=== PATIENT | male | born 1955 | race Caucasian/White ===

== ENCOUNTER 2023-07-20 08:54 | Emergency (ER) | payer MEDICARE, SELFPAY ==
[2023-07-20 08:55] VITALS: BP 169/64; PULSE 56; RESP 16; TEMP 36.7; O2SAT 99; BMI 32.8
--- NOTE | 2023-07-20 09:16 | ECG_ITS ---
APPROVED REPORT Exam: Resting ECG HR:51 bpm ECG Measurements Heart Rate 51 AXES NV 168 P 39 QRSd 93 QRS -24 QT 438 T 37 QTc 416 Conclusion SINUS BRADYCARDIA BORDERLINE LEFT AXIS DEVIATION [QRS AXIS < -20] BORDERLINE ECG UNCONFIRMED REPORT Electronically signed by : Blue Pereira MD 07/22/2023 08:02:05
[2023-07-20 09:31] VITALS: BP 148/93; PULSE 50; O2SAT 96
--- NOTE | 2023-07-20 09:34 | HMH.EDGENADL ---
Discharge Plan Disposition Patient Disposition: Home, Self-Care Condition: Good Prescriptions Prescriptions: New lisinopril 10 mg tablet 10 mg PO DAILY Qty: 30 0RF No Action prednisone 50 MG tablet 50 mg PO DAILY 5 Days Qty: 5 0RF diclofenac sodium 75 MG tablet,delayed release (DR/EC) 75 mg PO BID 10 Days Qty: 20 0RF Referrals Follow up/Referrals: Mathew Alcala MD [Staff Physician] - See instructions Provider,MD Eusebia [Primary Care Provider] - See instructions Activity Restrictions/Add. Instructions Additional Instructions/Restrictions: You were evaluated in the emergency department today. Please pick pulling machine tender your prescription to the pharmacy and take daily as prescribed. Follow-up closely with your primary care provider for reassessment. Also recommend follow-up with cardiology given your intermittent chest pain. Return to the emergency department for any new or worsening symptoms. Keep a log of your blood pressures at home and present them to your doctor. Clinical Impressions Clinical Impression: Hypertension Qualifiers: Hypertension type: unspecified Qualified Code(s): I10 - Essential (primary) hypertension Instructions Patient Instructions: DI for High Blood Pressure Discharge ED Provider: Bernarda Corley General Adult HPI General Chief complaint: Recheck/Abnormal Lab/Rx Stated complaint: high bp Time Seen by Provider: 07/20/23 09:15 Mode of Arrival: Ambulatory Source of Information: Patient Limitations: No Limitations Description of Symptoms (Recalled from ER Triage Doc. by RN): Patient reports that his blood pressure has been elevated lately. states that the patient has had nose bleeds lately and headaches off and on. History of Present Illness HPI narrative: This patient is a 67-year-old male who denies significant past medical history presenting to the emergency department for evaluation with concern for high blood pressure readings at home. He notes that his and been taking his blood pressure because he has been complaining of headaches off and on and has had intermittent nosebleeds. He also states that he is having gas pain whenever he goes to sleep at night on the left side of his chest that seems to be associated with what he eats for dinner. His is concerned that its not gas pain but its true chest pain. He denies experiencing symptoms like this last night and denies any current symptoms at this time. He attributes the nosebleeds and headaches to being out in the [place] working on hay lately. He states it has been very congested and has had a lot of sinus pressure. His blood pressure at home for the last week has consistently been in the 160s to 170s systolic, so his brought him in for evaluation. She reports that they have not been able to get in with his primary care provider, as they had an insurance issue. Currently states that he is feeling well without any concerns or complaints at this time. Related Data Previous Rx's Medication Instructions Recorded diclofenac sodium 75 mg 75 mg PO BID 10 days #20 tabs 09/03/19 tablet,delayed release prednisone 50 mg tablet 50 mg PO DAILY 5 days #5 tabs 09/03/19 lisinopril 10 mg tablet 10 mg PO DAILY #30 tabs 07/20/23 Allergies Allergy/AdvReac Type Severity Reaction Status Date / Time No Known Allergies Allergy Verified 09/03/19 08:[address] [facility] Disclaimer: The information contained in this section may have been updated after the patient was seen, as this information can be updated by other users. Social History Smoking Status: Never smoker alcohol intake: never substance use type: other current occupational status: employed Travel in the last 8 weeks: None household members: spouse ROS Obtained: Yes All systems reviewed & no additional complaints except as documented Physical Exam General General appearance: alert and in no
[2023-07-20 09:43] LABS: Chloride 103 mmol/L (98-107); Sodium 139 mmol/L (136-145)
[2023-07-20 09:46] LABS: Blood Urea Nitrogen 16 mg/dl (9-20); Carbon Dioxide 27 mmol/L (22.0-30.0); Creatinine Clearance Estimated 99 mL/min (50-200); Estimated Glomerular Filt Rate 85 ml/min (>60); GFR (African American) 102 ML/MIN (>60)
[2023-07-20 09:47] LABS: Calcium 8.8 mg/dl (8.4-10.2); Glucose 118 mg/dl (74-100)
[2023-07-20 10:01] VITALS: BP 143/92; PULSE 53; O2SAT 96
--- NOTE | 2023-07-20 10:03 | PC.NURSE ---
Rounded on pt nothing needed at this time, at bs
[2023-07-20 10:25] VITALS: BP 143/92; PULSE 53; RESP 18; TEMP 36.7; O2SAT 97
== END 2023-07-20 10:28 | disposition home or self-care (01) ==
PROVIDERS: Emergency Provider Emergency Medicine
DX: I10 Essential (primary) hypertension (principal); R00.1 Bradycardia, unspecified; R07.9 Chest pain, unspecified; R04.0 Epistaxis; R09.81 Nasal congestion
CPT/HCPCS: 80048; 93005; 99284

== ENCOUNTER → 2023-08-11 06:00 | Outpatient (CLI) | payer MEDICARE, SELFPAY ==
--- NOTE | 2023-08-11 06:10 | NM_ITS ---
APPROVED REPORT Exam: Nuclear Stress Test Indication: chest pain..high bp..tobacco use..family hx Patient Location: Outpatient Stress Tech: Frances Blank DE Tech:Dianne Keita ARRT RT(R)(N) Ht: 5 ft 5 in Wt: 212 lbs HR: 67 bpm BP: 145/56 mmHg BSA: 2.03 m2 Rhythm: NSR TID: 1.06 BMI: 35.2 History: chest pain..high bp..tobacco use..family hx Procedure: Patient exercised on Perez protocol 8:45 minutes and sec, resting heart rate 67 bpm, resting blood pressure 145/56 mmHg, with exercise maximum heart rate achived was 155 bpm which is 100 % of the maximum predicted heart rate and blood pressure was 186/106 mmHg. Test was stopped due to fatigue and v-tach. Patient denied any complaint of chest pain. Patient has Average exercise capacity, achieved 10.1 METs of workload on treadmill, the blood pressure response to exercise was Normal. Cardiac Stress and Resting SPECT Images: Cardiac Stress and Resting SPECT images were obtained using technetium 99m Myoview 31.4 mCi stress and 10.54 mCi at rest. Resting and stress imaging in supine and prone positions demonstrate a medium sized, moderate, reversible perfusion defect in the basal to mid inferior and inferolateral LV wall. There is also a medium sized, moderate, partially reversible perfusion defect in the LV apex. Gated imaging demonstrates low normal global LV systolic function. There is mild hypokinesis of the basal inferior LV wall. LVEF is calculated at 50%. Conclusion: Medium sized, moderate, reversible perfusion defect in the basal to mid inferior and inferolateral LV wall. There is also a medium sized, moderate, partially reversible perfusion defect in the LV apex. Findings are suggestive of reversible ischemia. Gated imaging demonstrates low normal global LV systolic function. There is mild hypokinesis of the basal inferior LV wall. LVEF is calculated at 50%. Of note, the patient had frequent ectopy including PVCs, ventricular couplets, and runs of NSVT, at peak exercise and during recovery of Perez protocol. Electronically signed by : Mariana Agrawal MD 08/16/2023 15:16:09
--- NOTE | 2023-08-11 08:23 | CA_ITS ---
APPROVED REPORT EXAM: Comprehensive 2D, Doppler, and color-flow Echocardiogram Stonecutter Assistant: Sol Mcgee RT(R) Ht: 5 ft 10 in Wt: 213lbs BSA: 2.14 BP: 128/88 mmHg Indications: CP, bradycardia, HTN 2D Dimensions LVOT 2.01 cm (M/F) 1.5-2.5 LA Volume 40.10 mL LA Volume Index 18.65 mL/m2 (M/F) 16-34 M-Mode Dimensions RVDd 3.14 cm (0.9-2.6) LA Diam 3.62 cm (1.9-4.0) LVDd 5.83 cm (3.5-5.7) Ao Diam 3.09 cm (2.0-3.7) LVDs 4.39 cm (3.5-5.7) IVSd 0.87 cm (0.6-1.1) PWd 0.72 cm (0.6-1.1) EF (Teich) 48.20% FS 24.70% EDV (Teich) 168.50 mL ESV (Teich) 87.20 mL LV Diastology E Decel Time 150.00 (160-240 msec) E/A Ratio 1.7 MED E' 9.20 (< 7 cm/sec) E'/MED E' Ratio 7.70 (>14) LAT E' 12.60 (<10 cm/sec) E/LAT E' Ratio 5.62 (>14) Mitral Valve MV E Max Keon. 71.00 (40-130 cm/s) MV A Velocity 43.00 (40-130 cm/s) E/A Ratio 1.64 MV Decel. Time 150.00 (160-240 ms) MV PHT 44.00 ms Left Ventricle The left ventricle is normal size. The left ventricular systolic function is normal. The left ventricular ejection fraction is within the normal range. There is increased LV wall thickness. There is normal LV segmental wall motion. The left ventricular diastolic function is normal. LVEF is 55%. Right Ventricle Right ventricle is mildly dilated. There is mild reduction in RV systolic function. Atria The left atrium size is normal. The right atrium size is normal. There is no Doppler evidence of interatrial shunt. Aortic Valve The aortic valve is mildly thickened. There is no aortic valvular stenosis. Mild aortic regurgitation. Mitral Valve The mitral valve is normal in structure. No evidence of mitral valve stenosis. There is no mitral valve regurgitation noted. Tricuspid Valve The tricuspid valve leaflets are thin and pliable. Trace tricuspid regurgitation. There is insufficient TR jet to estimate RVSP. Pulmonic Valve The pulmonary valve is normal in structure. Trace pulmonic regurgitation. Great Vessels The aortic root is normal in size. The ascending aorta is normal in size. IVC is normal in size and collapses >50% with inspiration. Pericardium There is no pericardial effusion. Other Information Study Quality: Fair Conclusion Normal LV systolic function. Mildly dilated RV with mild reduction in RV systolic function. Mild AI. Electronically signed by : Mariana Agrawal MD 08/13/2023 21:13:20
--- NOTE | 2023-08-11 09:08 | CA_ITS ---
APPROVED REPORT Exam: Exercise Treadmill Technologist: Frances Lozdaa, Ht: 5 ft 7 in Wt: 213 lbs BSA: 2.08 m2 HR: 67 bpm BP: 145/56 mmHg Rhythm: Sinus bradycardia Medical History Medications: Lisinopril,,,,, Diclofenac Sodium,,,,, Stress Test Details Test: Perez HR Resting HR: 53 bpm Max Heart Rate (APMHR): 155 bpm Max HR Achieved: 168 bpm Target HR (85% APMHR): 132 bpm % of APMHR: 108 Recovery HR: 67 bpm HR response to stress: Normal HR response to stress BP Resting BP: 151.0/101.0 mmHg Max BP: 186.0/106.0 mmHg Recovery BP: 142.0/88.0 mmHg BP response to stress: Normal blood pressure response to stress. ECG Resting ECG: Sinus lars, PVC'S, PACs, rightward axis, sinus pause of 1.7 sec. Stress ECG: < 0.[address] depression Arrhythmia: PACs, PVCs, couplets, runs of NSVT Recovery ECG: Return to baseline within 1 minute of recovery. Clinical Exercise duration: 08:45 min Highest Stage Achieved: III Exercise capacity: 10.1 METs Overall Exercise Capacity for Age: Average Stress ECG Conclusion The patient was able to exercise for a total of 8:45 on Perez Protocol. He achieved a total of 10.1 METS. He has average exercise capacity compared to age and sex matched peers. He has normal HR and BP response to exercise. Max HR: 155 % of PM: 100% Max BP: 186/106 METs: 10.1 Test stopped due to: NSVT, fatigue Symptoms: No CP. Arrhythmias/Ectopy: Sinus pauses of -1.6 secs. Frequent PACs. Occ PVC, occ vent couplet & triplet. One 6 beat run of NSVT. ST-T Changes: Within normal ST response to exercise. Conclusion: Average exercise capacity. Frequent atrial ectopy, occ vent. ectopy with couplets, triplets & one 6 beat run of VT. Also occ sinus pause up to 1.6-1.[address] changes. Myoview images reported separately. Test Summary REST . . . . . . . Sitting REST . . . . . . . Standing REST 05:18 0.0 0.0 53 . 151/101 . . Stage 1 01:00 10.0 1.7 94 . . . . Stage 1 02:00 10.0 1.7 94 . . . . Stage 1 03:00 10.0 1.7 95 . . . . Stage 2 01:00 12.0 2.5 108 . . . . Stage 2 02:00 12.0 2.5 117 . 186/106 . . Stage 2 03:00 12.0 2.5 122 . 186/106 . . Stage 3 01:00 14.0 3.4 146 . . . . Stage 3 02:00 14.0 3.4 149 . . . . Stage 3 02:45 14.0 3.4 155 . . . Stop exercise at 08:45 RECOVERY 01:00 0.0 0.0 119 . . . . RECOVERY 02:00 0.0 0.0 109 . . . . RECOVERY 03:00 0.0 0.0 84 . 160/101 . . RECOVERY 04:00 0.0 0.0 64 . 148/ 93 . . RECOVERY 05:00 0.0 0.0 61 . 148/ 93 . . RECOVERY 06:00 0.0 0.0 64 . 142/ 88 . . RECOVERY 07:00 0.0 0.0 57 . 142/ 88 . . RECOVERY 07:22 0.0 0.0 69 . 142/ 88 . . Electronically signed by : Mariana Agrawal MD 08/16/2023 15:13:16
== END ==
PROVIDERS: PCP Internal Medicine; Visit Provider Internal Medicine
DX: I10 Essential (primary) hypertension (principal); R00.1 Bradycardia, unspecified; R07.9 Chest pain, unspecified; Z98.890 Other specified postprocedural states
CPT/HCPCS: 78452; 93017; 93306; A9502

== ENCOUNTER 2023-08-11 11:06 | Day surgery (SDC) | payer MEDICARE, SELFPAY ==
[2023-08-11] VITALS (15 sets, daily range): BP systolic 99–158; BP diastolic 65–91; PULSE 50–65; RESP 16–20; O2SAT 92–97; BMI 29.1
--- NOTE | 2023-08-11 11:21 | IR_ITS ---
APPROVED REPORT Patient Location: Outpatient Save All Operator: EDELMIRA Anderson RT (R) PROCEDURES Left heart catheterization Left ventriculogram Selective coronary angiogram INDICATION Abnormal stress test, Nonsustained ventricular tachycardia, Ventricular arrhythmias Informed consent was obtained prior to the procedure. COMPLICATIONS None Estimated Blood Loss: Less than 10 ml TECHNIQUE One percent lidocaine used to anesthetize the right anterior aspect of the wrist. The right radial artery was accessed via the Seldinger technique. A 6 Maori sheath was placed in the right radial artery. 2.5 mg of Verapamil, 800 mcg of nitroglycerin, 1mg Lidocaine and 5000 U Heparin were given through the arterial sheath. The papa catheter was also used to perform left heart catheterization, left ventriculogram and selective coronary angiogram. At the end of the procedure the sheath was removed good hemostasis was achieved using Traclet band, patient was transferred to the postop holding area in stable condition. ANGIOGRAPHIC RESULTS The left main artery Normal The left anterior descending artery Has proximal and mid vessel mild 10% luminal irregularities. There was a moderate-sized first diagonal artery which is approximately 2 mm in diameter and has an ostial concentric 80 to 90% stenosis. Likewise the second diagonal artery which is small to moderate in 1.75 mm in diameter has a proximal 60 to 70% stenosis. SLIME I-II flow was present down the entire LAD system The circumflex artery Is a large codominant system and has SLIME II flow with no angiographic evidence of plaque or stenosis The right coronary artery Is codominant and has proximal 10 to 20% stenoses with distal 20 to 30% stenoses The KAYE ventriculogram reveals Normal 65% The left ventricular end-diastolic pressure 10 mmHg IMPRESSION Slow flow down the LAD system consistent with endothelial dysfunction. Severe stenoses in a moderate-sized ostial first diagonal artery as well as a small to moderate-sized second diagonal artery. Neither of these lesions are producing the slow flow down the LAD which represents diffuse endothelial dysfunction Normal ejection fraction Normal left ventricular end-diastolic pressure PLAN 1. Medical management for endothelial dysfunction 2. Medical management for coronary artery disease 3. LDL less than 55 to be achieved with high intensity statin 4. Avoidance of tobacco products 5. Maximize antianginal medications with particular attention to long-acting nitrates and Ranexa 6. Cardiac rehabilitation 7. Low-dose beta-blockers may benefit the ventricular arrhythmia Electronically signed by : Mathew Alcala MD 08/11/2023 16:20:16
[2023-08-11 11:40] LABS: Basophils % 0.5 % (0.1-2.0); Eosinophils % 0.8 % (0.1-12.0); Hematocrit 49.1 % (42.0-52.0); Hemoglobin 16.5 g/dL (14.1-18.0); Lymphocytes # 2.2 K/mm3 (0.7-4.5); Lymphocytes % 42.4 % (10-50); Mean Corpuscular HGB Conc 33.6 g/dL (31.8-35.4); Mean Corpuscular Hemoglobin 32.2 pg (27.0-31.2); Mean Corpuscular Volume 95.7 fl (80-94); Mean Platelet Volume 7.8 fl (7.4-10.4); Monocytes # 0.4 K/mm3 (0.1-1.0); Monocytes % 7.2 % (1.7-9.3); Neutrophils # 2.6 K/mm3 (1.8-7.8); Neutrophils % 49.1 % (37.0-80.0); Platelet Count 192 K/mm3 (142-424); Red Blood Count 5.13 M/mm3 (4.60-6.20); Red Cell Distribution Width 13.2 % (11.5-17.5); White Blood Count 5.2 K/mm3 (4.8-10.8)
[2023-08-11 11:47] LABS: Chloride 103 mmol/L (98-107); Potassium 4.4 mmoL/L (3.5-5.1); Sodium 138 mmol/L (136-145)
[2023-08-11 11:50] LABS: Anion Gap 11.4 mEq/L (5-15); Blood Urea Nitrogen 16 mg/dl (9-20); Calcium 8.9 mg/dl (8.4-10.2); Carbon Dioxide 28 mmol/L (22.0-30.0); Creatinine Clearance Estimated 99 mL/min (50-200); Estimated Glomerular Filt Rate 97 ml/min (>60); GFR (African American) 117 ML/MIN (>60); Glucose 121 mg/dl (74-100)
[2023-08-11 16:59] LABS: CATHL Activated Clotting Time 191 SEC (74-125)
== END 2023-08-11 19:13 | disposition home or self-care (01) ==
PROVIDERS: PCP Family Medicine; Visit Provider Internal Medicine
DX: I10 Essential (primary) hypertension (principal); I47.20 Ventricular tachycardia, unspecified; R00.1 Bradycardia, unspecified; R07.9 Chest pain, unspecified; I77.1 Stricture of artery; I25.118 Atherosclerotic heart disease of native coronary artery with other forms of angina pectoris; Z82.49 Family history of ischemic heart disease and other diseases of the circulatory system
CPT/HCPCS: 78452; 80048; 85025; 85347; 93017; 93306; 93458; 99152; A9502; C1725; C1769; J1644; Q9967

== ENCOUNTER → 2023-08-22 10:48 | Outpatient (CLI) | payer MEDICARE, SELFPAY ==
[2023-08-22 11:55] LABS: Basophils % 0.5 % (0.1-2.0); Hematocrit 47.1 % (42.0-52.0); Lymphocytes # 1.8 K/mm3 (0.7-4.5); Lymphocytes % 41.5 % (10-50); Mean Corpuscular Hemoglobin 32.2 pg (27.0-31.2); Mean Corpuscular Volume 94.9 fl (80-94); Monocytes # 0.3 K/mm3 (0.1-1.0); Monocytes % 6.8 % (1.7-9.3); Neutrophils # 2.2 K/mm3 (1.8-7.8); Neutrophils % 50.2 % (37.0-80.0); Platelet Count 200 K/mm3 (142-424); Red Blood Count 4.96 M/mm3 (4.60-6.20); Red Cell Distribution Width 12.9 % (11.5-17.5); White Blood Count 4.4 K/mm3 (4.8-10.8)
[2023-08-22 13:22] LABS: Alanine Aminotransferase 51 U/L (12-78); Albumin Level 4.3 g/dl (3.5-5.0); Alkaline Phosphatase 61 U/L (38-126); Anion Gap 12.6 mEq/L (5-15); Aspartate Amino Transferase 49 U/L (17-59); Bilirubin,Direct 0.1 mg/dl (0.0-0.4); Bilirubin,Indirect 0.4 mg/dL (0.0-0.9); Bilirubin,Total 0.5 mg/dl (0.2-1.3); Bilirubin,Unconjugated 0.4 mg/dL (0.0-1.1); Blood Urea Nitrogen 19 mg/dl (9-20); Calcium 9.3 mg/dl (8.4-10.2); Carbon Dioxide 29 mmol/L (22.0-30.0); Chloride 99 mmol/L (98-107); Chol/HDL Ratio 5.1 (1-3.5); Cholesterol 157 mg/dl (140-200); Estimated Glomerular Filt Rate 75 ml/min (>60); GFR (African American) 91 ML/MIN (>60); Glucose 93 mg/dl (74-100); HDL Cholesterol 31 mg/dl (40-60); Magnesium 1.6 mg/dl (1.6-2.3); Potassium 4.6 mmoL/L (3.5-5.1); Sodium 136 mmol/L (136-145); Triglycerides 118 mg/dl (30-150); VLDL Cholesterol 24 mg/dL (0-40)
[2023-08-22 13:34] LABS: Direct LDL Cholesterol 88.75 mg/dL (100-129)
[2023-08-22 13:53] LABS: Thyroid Stimulating Hormone 0.96 uIU/mL (0.465-4.68)
== END ==
LOC: LAB 10:49
PROVIDERS: PCP Family Medicine; Visit Provider Nurse Practitioner
DX: I10 Essential (primary) hypertension (principal); I25.10 Atherosclerotic heart disease of native coronary artery without angina pectoris; I47.20 Ventricular tachycardia, unspecified; R00.1 Bradycardia, unspecified; Z72.0 Tobacco use; M54.10 Radiculopathy, site unspecified
CPT/HCPCS: 36415; 80048; 80061; 80076; 83735; 84439; 84443; 85025; 93225

== ENCOUNTER → 2023-09-19 09:10 | Outpatient (CLI) | payer MEDICARE, SELFPAY | PROVIDERS: PCP Family Medicine; Visit Provider Physician Assistant | DX: I10 Essential (primary) hypertension (principal); I25.10 Atherosclerotic heart disease of native coronary artery without angina pectoris; I47.20 Ventricular tachycardia, unspecified; I48.91 Unspecified atrial fibrillation; R00.1 Bradycardia, unspecified; Z72.0 Tobacco use | CPT/HCPCS: 93270 ==

== ENCOUNTER 2024-10-01 09:24 | Outpatient (CLI) | payer MEDICARE, SELFPAY | END 2024-10-01 23:59 | disposition home or self-care (01) | LOC: RT 09:28 | PROVIDERS: PCP Family Medicine; Visit Provider Physician Assistant | DX: I47.20 Ventricular tachycardia, unspecified (principal); R00.1 Bradycardia, unspecified; I48.91 Unspecified atrial fibrillation | CPT/HCPCS: 93225; 93227 ==

== ENCOUNTER 2024-10-11 07:35 | Outpatient (CLI) | payer MEDICARE, SELFPAY ==
--- NOTE | 2024-10-11 07:43 | CA_ITS ---
APPROVED REPORT EXAM: Comprehensive 2D, Doppler, and color-flow Echocardiogram Vacuum Drier Operator: Sol Mcgee RT(R) Ht: 5 ft 11 in Wt: 223lbs BSA: 2.21 BP: 144/84 mmHg Indications: dyspnea, AFIB, HTN, palpitations, family history of HD, GERD. 2D Dimensions LA Volume 41.20 mL LA Volume Index 18.64 mL/m2 (M/F) 16-34 EF AP4 58.40 % GL Strain -17.0 % M-Mode Dimensions RVDd 2.74 cm (0.9-2.6) LA Diam 3.51 cm (1.9-4.0) LVDd 5.75 cm (3.5-5.7) LVDs 3.70 cm (3.5-5.7) IVSd 0.89 cm (0.6-1.1) PWd 0.84 cm (0.6-1.1) EF (Teich) 64.40% FS 35.70% EDV (Teich) 163.30 mL ESV (Teich) 58.10 mL LV Diastology E Decel Time 160 (160-240 msec) E/A Ratio 1.4 Mitral Valve MV E Max Keon. 74.0 (40-130 cm/s) MV A Velocity 52.0 (40-130 cm/s) E/A Ratio 1.41 MV PHT 47.0 ms Left Ventricle The left ventricle is normal size. The left ventricular systolic function is normal. The left ventricular ejection fraction is within the normal range. There is increased LV wall thickness. There is normal LV segmental wall motion. The left ventricular diastolic function is normal. LVEF is 55%. Right Ventricle The right ventricle is mildly dilated. The right ventricular systolic function is normal. Atria Left atrium is mildly dilated. Right atrium is mildly dilated. There is no Doppler evidence of interatrial shunt. Aortic Valve The aortic valve is mildly thickened. There is no aortic valvular stenosis. Mild aortic regurgitation. Mitral Valve The mitral valve is normal in structure. No evidence of mitral valve stenosis. There is no mitral valve regurgitation noted. Tricuspid Valve Tricuspid valve is grossly normal in structure and function. Trace tricuspid regurgitation. RVSP is normal. Pulmonic Valve The pulmonary valve is normal in structure. Trace pulmonic regurgitation. Great Vessels The aortic root is normal in size. IVC is normal in size and collapses >50% with inspiration. Pericardium There is no pericardial effusion. Other Information Study Quality: Fair Conclusion Normal biventricular systolic function. Mild RV dilation. Mild biatrial dilation. Mild AI. Electronically signed by : Mariana Agrawal MD 10/28/2024 10:17:19
== END 2024-10-11 23:59 | disposition home or self-care (01) ==
LOC: RT 07:37
PROVIDERS: Visit Provider Physician Assistant
DX: I51.7 Cardiomegaly (principal); I35.1 Nonrheumatic aortic (valve) insufficiency; R06.09 Other forms of dyspnea; I25.10 Atherosclerotic heart disease of native coronary artery without angina pectoris; I48.91 Unspecified atrial fibrillation; I47.20 Ventricular tachycardia, unspecified; R00.1 Bradycardia, unspecified
CPT/HCPCS: 93306

== ENCOUNTER 2024-11-01 07:43 | Outpatient (CLI) | payer MEDICARE, SELFPAY ==
[2024-11-01 14:09] LABS: PHA INR Fingerstick 1.1 (0.9-1.1)
== END 2024-11-01 14:14 ==
LOC: ACC 07:44
PROVIDERS: PCP Family Medicine; Visit Provider Physician Assistant
DX: Z79.01 Long term (current) use of anticoagulants (principal); I48.91 Unspecified atrial fibrillation
CPT/HCPCS: 85610; 99211; G0463

== ENCOUNTER 2024-11-05 09:06 | Outpatient (CLI) | payer MEDICARE, SELFPAY ==
[2024-11-05 09:56] LABS: Basophils % 0.4 % (0.1-2.0); Eosinophils % 0.8 % (0.1-12.0); Hematocrit 44.3 % (42.0-52.0); Hemoglobin 15.2 g/dL (14.1-18.0); Lymphocytes # 2.2 K/mm3 (0.7-4.5); Lymphocytes % 44.2 % (10-50); Mean Corpuscular HGB Conc 34.3 g/dL (31.8-35.4); Mean Corpuscular Hemoglobin 30.4 pg (27.0-31.2); Mean Corpuscular Volume 88.6 fl (80-94); Mean Platelet Volume 10.1 fl (7.4-10.4); Monocytes # 0.5 K/mm3 (0.1-1.0); Monocytes % 10.4 % (1.7-9.3); Neutrophils # 2.2 K/mm3 (1.8-7.8); Platelet Count 201 K/mm3 (142-424); Red Cell Distribution Width 12.6 % (11.5-17.5)
[2024-11-05 10:29] LABS: Alanine Aminotransferase 81 U/L (12-78); Albumin Level 4.5 g/dl (3.5-5.0); Alkaline Phosphatase 67 U/L (38-126); Anion Gap 9.6 mEq/L (5-15); Aspartate Amino Transferase 87 U/L (17-59); Bilirubin,Direct 0.2 mg/dl (0.0-0.4); Bilirubin,Indirect 0.1 mg/dL (0.0-0.9); Bilirubin,Total 0.3 mg/dl (0.2-1.3); Bilirubin,Unconjugated 0.1 mg/dL (0.0-1.1); Blood Urea Nitrogen 20 mg/dl (9-20); Calcium 9.3 mg/dl (8.4-10.2); Carbon Dioxide 29 mmol/L (22.0-30.0); Chloride 100 mmol/L (98-107); Chol/HDL Ratio 3.5 (1-3.5); Cholesterol 105 mg/dl (140-200); Estimated Glomerular Filt Rate 84 ml/min (>60); GFR (African American) 102 ML/MIN (>60); Glucose 103 mg/dl (74-100); HDL Cholesterol 30 mg/dl (40-60); Magnesium 1.8 mg/dl (1.6-2.3); Potassium 4.6 mmoL/L (3.5-5.1); Sodium 134 mmol/L (136-145); Total Protein,Serum 7.8 g/dl (6.3-8.2); Triglycerides 154 mg/dl (30-150); VLDL Cholesterol 31 mg/dL (0-40)
[2024-11-05 10:41] LABS: Direct LDL Cholesterol 45.77 mg/dL (100-129)
[2024-11-05 10:45] LABS: Free T4 (Free Thyroxine) 1.08 ng/dl (0.78-2.19)
[2024-11-05 13:33] LABS: Thyroid Stimulating Hormone 1.44 uIU/mL (0.465-4.68)
[2024-11-05 14:34] LABS: PHA INR Fingerstick 1.9 (0.9-1.1)
== END 2024-11-05 14:43 ==
LOC: LAB 09:07
PROVIDERS: PCP Family Medicine; Visit Provider Physician Assistant
DX: K21.9 Gastro-esophageal reflux disease without esophagitis (principal); I48.91 Unspecified atrial fibrillation; Z72.0 Tobacco use; I25.10 Atherosclerotic heart disease of native coronary artery without angina pectoris; I10 Essential (primary) hypertension; I35.1 Nonrheumatic aortic (valve) insufficiency
CPT/HCPCS: 36415; 80048; 80061; 80076; 83735; 84439; 84443; 85025; 85610; 99211; G0463

== ENCOUNTER 2024-11-11 07:39 | Outpatient (CLI) | payer MEDICARE, SELFPAY | END 2024-11-11 09:13 | LOC: ACC 07:39 | PROVIDERS: PCP Family Medicine; Visit Provider Physician Assistant | DX: Z79.01 Long term (current) use of anticoagulants (principal); I48.91 Unspecified atrial fibrillation | CPT/HCPCS: 85610; 99211; G0463 ==

== ENCOUNTER 2025-05-06 09:11 | Outpatient (CLI) | payer MEDICARE, SELFPAY ==
[2025-05-06 09:46] LABS: Hematocrit 44.6 % (42.0-52.0); Hemoglobin 15.4 g/dL (14.1-18.0); Immature Granulocytes % 0.2 %; Mean Corpuscular HGB Conc 34.5 g/dL (31.8-35.4); Mean Corpuscular Hemoglobin 30.8 pg (27.0-31.2); Mean Corpuscular Volume 89.2 fl (80-94); Nucleated Red Blood Cells % 0 %; Platelet Count 198 K/mm3 (142-424); Red Blood Count 5.00 M/mm3 (4.60-6.20); Red Cell Distribution Width-SD 42.2 fL; White Blood Count 5.1 K/mm3 (4.8-10.8)
[2025-05-06 10:17] LABS: Free T4 (Free Thyroxine) 1.07 ng/dl (0.78-2.19)
[2025-05-06 10:19] LABS: Alanine Aminotransferase 81 U/L (12-78); Albumin Level 4.4 g/dl (3.5-5.0); Alkaline Phosphatase 77 U/L (38-126); Anion Gap 9.6 mEq/L (5-15); Aspartate Amino Transferase 74 U/L (17-59); Bilirubin,Direct 0.5 mg/dl (0.0-0.4); Bilirubin,Indirect 0.2 mg/dL (0.0-0.9); Bilirubin,Total 0.7 mg/dl (0.2-1.3); Bilirubin,Unconjugated 0.3 mg/dL (0.0-1.1); Blood Urea Nitrogen 17 mg/dl (9-20); Calcium 9.7 mg/dl (8.4-10.2); Carbon Dioxide 30 mmol/L (22.0-30.0); Chloride 102 mmol/L (98-107); Cholesterol 128 mg/dl (140-200); Creatinine,Serum 0.90 mg/dl (0.66-1.25); Estimated Glomerular Filt Rate 84 ml/min (>60); GFR (African American) 102 ML/MIN (>60); Glucose 114 mg/dl (74-100); HDL Cholesterol 34 mg/dl (40-60); Magnesium 1.8 mg/dl (1.6-2.3); Potassium 4.6 mmoL/L (3.5-5.1); Sodium 137 mmol/L (136-145); Total Protein,Serum 8.4 g/dl (6.3-8.2); Triglycerides 129 mg/dl (30-150)
[2025-05-06 10:47] LABS: Thyroid Stimulating Hormone 1.21 uIU/mL (0.465-4.68)
== END 2025-05-06 23:59 | disposition home or self-care (01) ==
LOC: LAB 09:12
PROVIDERS: PCP Family Medicine; Visit Provider Physician Assistant
DX: I35.1 Nonrheumatic aortic (valve) insufficiency (principal); K21.9 Gastro-esophageal reflux disease without esophagitis; I48.91 Unspecified atrial fibrillation; Z72.0 Tobacco use; I25.10 Atherosclerotic heart disease of native coronary artery without angina pectoris; R00.1 Bradycardia, unspecified; I47.20 Ventricular tachycardia, unspecified; I10 Essential (primary) hypertension
CPT/HCPCS: 36415; 80048; 80061; 80076; 83735; 84439; 84443; 85025

== ENCOUNTER 2025-06-20 13:16 | Emergency (ER) | payer MEDICARE, SELFPAY ==
[2025-06-20] VITALS (11 sets, daily range): BP systolic 101–131; BP diastolic 50–88; PULSE 44–54; RESP 11–23; TEMP 36.7–36.8; O2SAT 95–99; BMI 34.0
--- NOTE | 2025-06-20 13:23 | ECG_ITS ---
APPROVED REPORT Exam: Resting ECG HR:47 bpm ECG Measurements Heart Rate 47 AXES ND 189 P 66 QRSd 106 QRS 9 QT 455 T 14 QTc 419 Conclusion Sinus bradycardia Left axis Normal intervals No STEMI Electronically signed by : Regino Garcia, 06/20/2025 17:39:18
--- NOTE | 2025-06-20 13:26 | XR_ITS ---
FINAL REPORT CLINICAL HISTORY: short of breath FINDINGS: A portable view of the chest was obtained. The heart is borderline in size. The mediastinum is unremarkable. Left basilar opacity is favored to be atelectasis although pneumonia is not excluded. There is no pleural effusion or pneumothorax. IMPRESSION: Favor left basilar atelectasis but pneumonia is not excluded. Recommend continued follow-up. Reviewed, Interpreted and Dictated by Rayne Kinsey MD Transcribed by Fernanda Nice Authenticated and [facility]
--- NOTE | 2025-06-20 13:32 | ED_ITS ---
Discharge Plan Disposition Patient Disposition: Home, Self-Care Condition: Good Prescriptions Prescriptions: No Action Xarelto 20 mg tablet 20 mg PO DAILY Rx Instructions: must administer with evening meal rosuvastatin 40 mg tablet 40 mg PO .every other day losartan 25 mg tablet 25 mg PO DAILY Qty: 30 5RF aspirin 81 mg tablet,delayed release (DR/EC) See Rx Instructions .ROUTE .COMPLEX Qty: 90 3RF Dose Instruction: TAKE 1 TABLET BY MOUTH EVERY DAY Rx Instructions: TAKE 1 TABLET BY MOUTH EVERY DAY bisoprolol fumarate 5 mg tablet 5 mg PO QDAY Qty: 30 5RF nitroglycerin 0.4 mg tablet, sublingual See Rx Instructions .ROUTE .COMPLEX Qty: 25 3RF Dose Instruction: DISSOLVE 1 TABLET UNDER TONGUE EVERY 5 MINUTES NEEDED FOR CHEST PAIN. IF NO RELIEF GO TO ER. DO NOT EXCEED 3 DOSES PER EPISODE Rx Instructions: DISSOLVE 1 TABLET UNDER TONGUE EVERY 5 MINUTES NEEDED FOR CHEST PAIN. IF NO RELIEF GO TO ER. DO NOT EXCEED 3 DOSES PER EPISODE Referrals Follow up/Referrals: Margie Kemp MD [Primary Care Provider, Medical] - See instructions Mathew Alcala MD [Staff Physician, Cardiology] - See instructions Provider,Referral, [Referring, Medical] - See instructions Activity Restrictions/Add. Instructions Additional Instructions/Restrictions: Increase fluids and rest. Take meds as directed. Please follow-up with Dr. Tsai on Monday in the cardiology clinic as discussed. Return to ED if any other problems or concerns Clinical Impressions Clinical Impression: Chest pain Instructions Patient Instructions: DI for Chest Pain Print Language Print Language: Danish Discharge ED Provider: Regino Garcia HPI <Liseth Reddy (ED), [employer] - Last Filed: 06/20/25 22:02> General Chief Complaint: Chest Pain Stated Complaint: CP Time Seen by Provider: 06/20/25 13:19 History of Present Illness HPI narrative: 69-year-old male presents to the ED today for complaint of chest pain that started about 1230 today. He says it started in the left side of his chest he took nitro at 1230 he broke out into a cold sweat became lightheaded and his vision got blurry and he almost passed out. His blood pressure was 88/33 per his . He sat down for a few minutes and his chest pain was improved and he felt better. He almost did not come to the ED. His made him come because of the chest pain. He currently has no chest pain or shortness of breath. He did have nausea before but has none now. Patient appears well and says he feels well now. He does see Rakan Tsai. Related Data Home Medications ?Medication ?Instructions ?Recorded ?Confirmed rosuvastatin 40 mg tablet 40 mg PO .every other day 05/06/25 rivaroxaban 20 mg tablet (Xarelto) 20 mg PO DAILY 01/1505/06/25 Previous Rx's ?Medication ?Instructions ?Recorded losartan 25 mg tablet 25 mg PO DAILY #30 tabs 01/14 02/07 aspirin 81 mg tablet,delayed See Rx Instructions .Rout e 02/10/25 release .COMPLEX #90 tabs bisoprolol fumarate 5 mg tablet 5 mg PO QDAY #30 tabs 02/17/25 nitroglycerin 0.4 mg sublingual See Rx Instructions .R oute 05/14/25 tablet .COMPLEX #25 tabs Allergies Allergy/AdvReac Type Severity Reaction Status Date / Time No Known Allergies Allergy Verified 05/06/25 08:43 [facility] <Liseth Reddy (ED), [employer]SEM[employer]ER - Last Filed: 06/20/25 22:02> [facility] Disclaimer: The information contained in this section may have been updated after the patient was seen, as this information can be updated by other users. Medical History (Updated 06/21/25 @ 07:50 by Regino Garcia DO) Impacted cerumen of right ear Mild AI (aortic incompetence) Sinus headache GERD (gastroesophageal reflux disease) Atrial fibrillation Ventricular tachycardia Hypertension Surgical History History of testicular surgery Family History Father Coronary artery disease 66 yo CAD Mother Stroke Social History Smoking Status: Never smoker alcohol intake: never substance use type: other current occupational status: employed Travel in the last 8 weeks?: None household members: spouse Have you lived/traveled outside [place] in past 30 days?: No Contact w/someone who lives/traveled outside US past 30 days?: No Exposure to someone with infectious disease in past 14 days?: No Do you have a fever (greater than 100.4 F or 38 C)?: No Have you tested positive for COVID-19?: No Exposed to someone with COVID-19 in past 14 days?: No Do you have a sore throat?: No Do you have a cough?: No Do you have any weakness?: No Do you have any diarrhea?: No Are you experiencing any unusual bleeding?: No Do you have any muscle aches/pain?: No Do you have any abdominal pain?: No Are you experiencing loss of taste or smell?: No Other Medical History Have you received the Flu Vaccine for this season: No Have you received the Pneumonia Vaccine: No <Liseth Reddy (ED), [employer]ER - Last Filed: 06/20/25 22:02> ROS Obtained: Yes Systems reviewed as appropriate & no additional complaints except as documented Constitutional Constitutional: Reports as per HPI Physical Exam <Liseth Reddy (ED), [employer]ER - Last Filed: 06/20/25 22:02> General General appearance: alert and in no apparent distress Head Head exam: normocephalic Eye Eye exam: Present normal appearance and PERRL ENT ENT exam: Present mucous membranes moist Neck Neck exam: Present trachea midline Chest Chest inspection: Present symmetric chest wall rise Respiratory Respiratory exam: Present normal lung sounds bilaterally Cardiovascular Cardiovascular exam: Present regular rate, normal rhythm, normal heart sounds, +S1 and +S2 Abdominal Exam Abdominal exam: Present soft and normal bowel sounds Extremities Exam Extremities exam: Present normal inspection, full ROM and normal capillary refill Back Exam Back exam: Present full ROM Neurological Exam Neurological exam: Present alert, oriented X3 and normal gait Psychiatric Psychiatric exam: Present normal affect and normal mood Skin Skin exam: Present warm and dry HEART Score <Liseth Reddy (ED), [employer]ER - Last Filed: 06/20/25 22:02> HEART Score HEART Score assessment performed?: Yes History (anamnesis): Slightly suspicious ECG: Non-specific disturbance Age: >65 years Risk factors: 3 or more risk factors Troponin: </= normal limit HEART Score: 5 <Regino Garcia DO - Last Filed: 06/21/25 07:50> HEART Score HEART Score: 5 Critical Care <Liseth Reddy (ED), [employer]ER - Last Filed: 06/20/25 22:02> Critical Care Time Critical Care Time: No Medical Decision Making <Liseth Reddy (ED), [employer]ER - Last Filed: 06/20/25 22:02> Daryn Inquiry Pt receiving controlled substance: No Daryn was queried for this patient: No Vital Signs Vital Signs: 06/20/25 13:17 06/20/25 15:19 06/20/25 15:21 Temperature 98.0 F Temperature Source Oral Pulse Rate 45 L 46 L Pulse Rate [Apical] 44 L Respiratory Rate 18 11 L 21 Blood Pressure 107/73 L 110/77 Blood Pressure [Left Arm] 101/50 L Blood Pressure Mean [Left Arm] 67 Blood Pressure Source Blood Pressure Source [Left Arm] Manual Cuff/ Auscultation Blood Pressure Position Blood Pressure Position [Left Arm] Sitting 02 Sat by Pulse Oximetry 96 97 98 Oxygen Delivery Method Room Air Room Air 06/20/25 15:40 06/20/25 16:00 06/20/25 16:20 Temperature Temperature Source Pulse Rate 51 L 53 L 49 L Pulse Rate [Apical] Respiratory Rate 21 19 23 Blood Pressure 116/79 122/81 131/88 Blood Pressure [Left Arm] Blood Pressure Mean [Left Arm] Blood Pressure Source Blood Pressure Source [Left Arm] Blood Pressure Position Blood Pressure Position [Left Arm] 02 Sat by Pulse Oximetry 99 97 95 Oxygen Delivery Method 06/20/25 16:40 06/20/25 17:00 06/20/25 17:20 Temperature Temperature Source Pulse Rate 46 L 49 L 54 L Pulse Rate [Apical] Respiratory Rate 19 16 16 Blood Pressure 129/77 121/72 120/78 Blood Pressure [Left Arm] Blood Pressure Mean [Left Arm] Blood Pressure Source Blood Pressure Source [Left Arm] Blood Pressure Position Blood Pressure Position [Left Arm] 02 Sat by Pulse Oximetry 95 97 97 Oxygen Delivery Method Room Air 06/20/25 17:40 06/20/25 18:11 Temperature 98.3 F Temperature Source Oral Pulse Rate 45 L 54 L Pulse Rate [Apical] Respiratory Rate 19 18 Blood Pressure 118/78 131/57 L Blood Pressure [Left Arm] Blood Pressure Mean [Left Arm] Blood Pressure Source Automatic Cuff Blood Pressure Source [Left Arm] Blood Pressure Position Sitting Blood Pressure Position [Left Arm] 02 Sat by Pulse Oximetry 97 Oxygen Delivery Method Room Air Lab Data Labs: Lab Results 06/20/25 13:20: HCV Ab HENRI w/Rflx PCR Qn Reactive, HIV Ag/Ab Combo Qual Negative 06/20/25 13:25: WBC 6.5, RBC 4.78, Hgb 14.3, Hct 43.3, MCV 90.6, MCH 29.9, MCHC 33.0, RDW 12.9, Plt Count 191, MPV 10.1, Neut % (Auto) 36.3 L, Lymph % (Auto) 56.3 H, [place] % (Auto) 6.3, Eos % (Auto) 0.6, Baso % (Auto) 0.3, Neut # (Auto) 2.4, Lymph # (Auto) 3.6, [place] # (Auto) 0.4, Eos # (Auto) 0.0, Baso # (Auto) 0.0, D-Dimer 0.53 H, Sodium 136, Potassium 4.2, Chloride 104, Carbon Dioxide 28, Anion Gap 8.2, BUN 15, Creatinine 1.00, Estimated Creat Clear 103, Estimated GFR 75, Est GFR ( Amer) 90, Glucose 177 H, Calcium 9.1, Magnesium 1.6, Total Bilirubin 0.7, AST 79 H, ALT 65, Alkaline Phosphatase 58, Troponin I < 0.01, Total Protein 7.8, Albumin 4.1, Globulin 3.7 H, Albumin/Globulin Ratio 1.1, Lipase 221 06/20/25 16:30: Troponin I < 0.01 06/20/25 13:25 06/20/25 13:25 Response Orders (Tests/Meds): ED MEDICATIONS Discontinued Medications Generic Name Dose Route Start Last Admin Trade Name Freq PRN Reason Stop Dose Admin Famotidine 20 mg 06/20/25 13:25 06/20/25 14:11 Famotidine 20mg/2ml Vial IV 06/20/25 13:26 20 mg ONCE ONE Administration Sodium Chloride 1,000 mls @ 999 mls/hr 06/20/25 13:33 06/20/25 17:07 Sod Chlor 0.9% 1000ml Bag IV 06/20/25 14:33 Infused .Q1H1M ONE Infusion Ondansetron HCl 4 mg 06/20/25 13:27 06/20/25 14:11 Ondansetron 4mg/2ml Vial IV 06/20/25 13:28 4 mg ONCE ONE Administration Sodium Chloride 8 ml 06/20/25 13:25 Sodium Chloride 0.9% 10ml Vial IV 07/20/25 13:24 NEEDED PRN dilute pepcid ORDERS Category Date Time Status Chest XR -- portable [XR chest portable] Stat Exams 06/20/25 13:26 Completed CBC [Complete Blood Count Auto Diff] Stat Lab 06/20/25 13:25 Completed Comprehensive Metabolic Panel Stat Lab 06/20/25 13:25 Completed D-Dimer Stat Lab 06/20/25 13:25 Completed HCV RNA PCR, Quant Stat Lab 06/20/25 13:20 Received HIV Combo Stat Lab 06/20/25 13:20 Completed Hepatitis C Ab Qual. W/ RFX Stat Lab 06/20/25 13:20 Completed Lipase Stat Lab 06/20/25 13:25 Completed Magnesium Stat Lab 06/20/25 13:25 Completed Trop I [Troponin I] Stat Lab 06/20/25 13:25 Completed Troponin I Q3H Lab 06/20/25 16:30 Completed MDM Narrative Medical Decision Narrative: patient is a 69-year-old male presenting to the emergency department for evaluation of chest pain. Patient is hemodynamically stable and nontoxic- appearing upon arrival, afebrile. Differential diagnosis includes ACS, angina, among others. Workup will be conducted with hematologic labs, specific imaging. Initial inventions include crystalloid bolus. Initial workup reviewed by me hematologic labs are remarkable for dimer of 0.53, patient has unlikely instance of a PE or VTE. Heart score was 5. [Imaging informally interpreted by me and remarkable for:] [Formal imaging read remarkable for:] Upon repeat evaluation [patient's pain is improved, appears better perfused, appears the same, appears worse, etc.]. Due to this [additional interventions, patient is appropriate for discharge, patient requires admission, etc.]. <Regino Garcia DO - Last Filed: 06/21/25 07:50> Medical Records Medical records reviewed: Yes I reviewed the patient's medical records. Vital Signs Vital Signs: 06/20/25 13:17 06/20/25 15:19 06/20/25 15:21 Temperature 98.0 F Temperature Source Oral Pulse Rate 45 L 46 L Pulse Rate [Apical] 44 L Respiratory Rate 18 11 L 21 Blood Pressure 107/73 L 110/77 Blood Pressure [Left Arm] 101/50 L Blood Pressure Mean [Left Arm] 67 Blood Pressure Source Blood Pressure Source [Left Arm] Manual Cuff/ Auscultation Blood Pressure Position Blood Pressure Position [Left Arm] Sitting 02 Sat by Pulse Oximetry 96 97 98 Oxygen Delivery Method Room Air Room Air 06/20/25 15:40 06/20/25 16:00 06/20/25 16:20 Temperature Temperature Source Pulse Rate 51 L 53 L 49 L Pulse Rate [Apical] Respiratory Rate 21 19 23 Blood Pressure 116/79 122/81 131/88 Blood Pressure [Left Arm] Blood Pressure Mean [Left Arm] Blood Pressure Source Blood Pressure Source [Left Arm] Blood Pressure Position Blood Pressure Position [Left Arm] 02 Sat by Pulse Oximetry 99 97 95 Oxygen Delivery Method 06/20/25 16:40 06/20/25 17:00 06/20/25 17:20 Temperature Temperature Source Pulse Rate 46 L 49 L 54 L Pulse Rate [Apical] Respiratory Rate 19 16 16 Blood Pressure 129/77 121/72 120/78 Blood Pressure [Left Arm] Blood Pressure Mean [Left Arm] Blood Pressure Source Blood Pressure Source [Left Arm] Blood Pressure Position Blood Pressure Position [Left Arm] 02 Sat by Pulse Oximetry 95 97 97 Oxygen Delivery Method Room Air 06/20/25 17:40 06/20/25 18:11 Temperature 98.3 F Temperature Source Oral Pulse Rate 45 L 54 L Pulse Rate [Apical] Respiratory Rate 19 18 Blood Pressure 118/78 131/57 L Blood Pressure [Left Arm] Blood Pressure Mean [Left Arm] Blood Pressure Source Automatic Cuff Blood Pressure Source [Left Arm] Blood Pressure Position Sitting Blood Pressure Position [Left Arm] 02 Sat by Pulse Oximetry 97 Oxygen Delivery Method Room Air Lab Data Labs: Lab Results 06/20/25 13:20: HCV Ab HENRI w/Rflx PCR Qn Reactive, HIV Ag/Ab Combo Qual Negative 06/20/25 13:25: WBC 6.5, RBC 4.78, Hgb 14.3, Hct 43.3, MCV 90.6, MCH 29.9, MCHC 33.0, RDW 12.9, Plt Count 191, MPV 10.1, Neut % (Auto) 36.3 L, Lymph % (Auto) 56.3 H, [place] % (Auto) 6.3, Eos % (Auto) 0.6, Baso % (Auto) 0.3, Neut # (Auto) 2.4, Lymph # (Auto) 3.6, [place] # (Auto) 0.4, Eos # (Auto) 0.0, Baso # (Auto) 0.0, D-Dimer 0.53 H, Sodium 136, Potassium 4.2, Chloride 104, Carbon Dioxide 28, Anion Gap 8.2, BUN 15, Creatinine 1.00, Estimated Creat Clear 103, Estimated GFR 75, Est GFR ( Amer) 90, Glucose 177 H, Calcium 9.1, Magnesium 1.6, Total Bilirubin 0.7, AST 79 H, ALT 65, Alkaline Phosphatase 58, Troponin I < 0.01, Total Protein 7.8, Albumin 4.1, Globulin 3.7 H, Albumin/Globulin Ratio 1.1, Lipase 221 06/20/25 16:30: Troponin I < 0.01 Response Orders (Tests/Meds): ED MEDICATIONS Discontinued Medications Generic Name Dose Route Start Last Admin Trade Name Freq PRN Reason Stop Dose Admin Famotidine 20 mg 06/20/25 13:25 06/20/25 14:11 Famotidine 20mg/2ml Vial IV 06/20/25 13:26 20 mg ONCE ONE Administration Sodium Chloride 1,000 mls @ 999 mls/hr 06/20/25 13:33 06/20/25 17:07 Sod Chlor 0.9% 1000ml Bag IV 06/20/25 14:33 Infused .Q1H1M ONE Infusion Ondansetron HCl 4 mg 06/20/25 13:27 06/20/25 14:11 Ondansetron 4mg/2ml Vial IV 06/20/25 13:28 4 mg ONCE ONE Administration Sodium Chloride 8 ml 06/20/25 13:25 Sodium Chloride 0.9% 10ml Vial IV 07/20/25 13:24 NEEDED PRN dilute pepcid ORDERS Category Date Time Status Chest XR -- portable [XR chest portable] Stat Exams 06/20/25 13:26 Completed CBC [Complete Blood Count Auto Diff] Stat Lab 06/20/25 13:25 Completed Comprehensive Metabolic Panel Stat Lab 06/20/25 13:25 Completed D-Dimer Stat Lab 06/20/25 13:25 Completed HCV RNA PCR, Quant Stat Lab 06/20/25 13:20 Received HIV Combo Stat Lab 06/20/25 13:20 Completed Hepatitis C Ab Qual. W/ RFX Stat Lab 06/20/25 13:20 Completed Lipase Stat Lab 06/20/25 13:25 Completed Magnesium Stat Lab 06/20/25 13:25 Completed Trop I [Troponin I] Stat Lab 06/20/25 13:25 Completed Troponin I Q3H Lab 06/20/25 16:30 Completed ECG Data Tracing #1: Attestation: I reviewed this ECG and interpreted as documented below: ECG Narrative: EKG personally interpreted by me demonstrates sinus bradycardia with a rate of 47 bpm, left axis, no SD prolongation, narrow QRS, no QTc prolongation. No ST elevation or depression. No overt signs of ischemia or arrhythmia MDM Narrative Medical Decision Narrative: patient is a 69-year-old male presenting to the emergency department for evaluation of chest pain. Patient is hemodynamically stable and nontoxic- appearing upon arrival, afebrile. Differential diagnosis includes ACS, angina, among others. Workup will be conducted with hematologic labs, specific imaging. Initial inventions include crystalloid bolus. I was consulted by the [facility], and we discussed the complexity of problems being addressed. I approved the treatment and management plan for this patient's care in the emergency department, thus performing a substantive portion of the medical decision making. Regino Garcia, DO I did independently evaluate this patient myself. Patient tells me that he was in his house and developed chest pain. He has been instructed to take nitroglycerin if he does develop chest pain. After taking nitroglycerin he developed hypotension with lightheadedness and diaphoresis. This spontaneously resolved as the nitroglycerin wears off. The nitroglycerin did help his pain so his insisted that he come here for evaluation. On initial evaluation of the patient he was sitting upright in no acute distress and was nontoxic appearance. He was hemodynamically stable, saturating well on room air, and was neurologically intact. On physical exam he was appropriately alert and oriented with a GCS of 15. Heart and lungs were clear to auscultation bilaterally. He had no abdominal tenderness palpation. No peripheral edema or asymmetric erythema. Differential diagnosis included ACS/RI, pulmonary embolism, pneumonia, pneumothorax, angina, pancreatitis, among others. Labs personally interpreted by me demonstrate no evidence of leukocytosis. No actionable anemia. No electrolyte derangements or evidence of acute kidney injury. D-dimer is negative by years criteria. Lipase is reassuring that this is not pancreatitis. Troponin and delta troponin are both less than 0.01. Chest x-ray was personally interpreted by me and demonstrated no lobar consolidation or pleural effusion. Official radiology read is in agreement states that there is some basilar atelectasis. EKG was obtained on arrival and was personally turbid by me and demonstrated sinus bradycardia with a rate of 47 bpm, left axis, no SD prolongation, narrow QRS, no QTc prolongation. No ST elevation or depression. No overt signs of ischemia or arrhythmia The patient specifically told me that he has felt pain like this before that has been related to gastritis. So we did treat with famotidine and 4 mg of Zofran. He remained asymptomatic throughout the entirety of his stay in the emergency department. Heart score was ultimately 5 so we did have a direct discussion with Dr. Alcala with the cardiology service about the patient's case. He was ultimately reassured that the patient has remained asymptomatic throughout the duration of his stay in the emergency department and had multiple troponins that were less than 0.01. We have elected to have the patient follow-up in clinic with Dr. Alcala for further evaluation and management. At this time all questions were answered and all parties were agreeable with the decision to discharge home.
[2025-06-20 13:37] LABS: Albumin Level 4.1 g/dl (3.5-5.0); Chloride 104 mmol/L (98-107); Hematocrit 43.3 % (42.0-52.0); Hemoglobin 14.3 g/dL (14.1-18.0); Immature Granulocytes % 0.2 %; Mean Corpuscular HGB Conc 33.0 g/dL (31.8-35.4); Mean Corpuscular Hemoglobin 29.9 pg (27.0-31.2); Mean Corpuscular Volume 90.6 fl (80-94); Nucleated Red Blood Cells % 0 %; Platelet Count 191 K/mm3 (142-424); Potassium 4.2 mmoL/L (3.5-5.1); Red Blood Count 4.78 M/mm3 (4.60-6.20); Red Cell Distribution Width-SD 43.3 fL; Sodium 136 mmol/L (136-145); White Blood Count 6.5 K/mm3 (4.8-10.8)
[2025-06-20 13:39] LABS: Alanine Aminotransferase 65 U/L (12-78); Anion Gap 8.2 mEq/L (5-15); Aspartate Amino Transferase 79 U/L (17-59); Blood Urea Nitrogen 15 mg/dl (9-20); Carbon Dioxide 28 mmol/L (22.0-30.0); Creatinine Clearance Estimated 103 mL/min (50-200); Creatinine,Serum 1.00 mg/dl (0.66-1.25); Estimated Glomerular Filt Rate 75 ml/min (>60); GFR (African American) 90 ML/MIN (>60)
[2025-06-20 13:40] LABS: Albumin/Globulin Ratio 1.1 (1.1-1.8); Alkaline Phosphatase 58 U/L (38-126); Bilirubin,Total 0.7 mg/dl (0.2-1.3); Calcium 9.1 mg/dl (8.4-10.2); Globulin 3.7 g/dL (1.3-3.2); Glucose 177 mg/dl (74-100); Lipase 221 U/L (23-300); Magnesium 1.6 mg/dl (1.6-2.3); Total Protein,Serum 7.8 g/dl (6.3-8.2)
[2025-06-20 13:46] LABS: D-Dimer 0.53 ug/mL (0.0-0.5)
[2025-06-20 13:55] LABS: Troponin I < 0.01 ng/ml (0.00-0.034)
[2025-06-20] MEDS: 0.9 % SODIUM CHLORIDE 1000ML 1,000 ML 999 ML IV (14:11)
[2025-06-20] MEDS: ONDANSETRON 4MG/2ML VIAL 4 MG IV (14:11)
[2025-06-20] MEDS: FAMOTIDINE 20MG/2ML VIAL 20 MG IV (14:11)
[2025-06-20 14:58] LABS: Hepatitis C Ab Qual. W/ RFX REACTIVE (Negative)
[2025-06-20 18:02] LABS: Troponin I < 0.01 ng/ml (0.00-0.034)
== END 2025-06-20 18:12 | disposition home or self-care (01) ==
PROVIDERS: Nurse Practitioner; Emergency Provider Student in an Organized Health Care Education/Training Program; PCP Family Medicine
DX: R07.9 Chest pain, unspecified (principal); R00.1 Bradycardia, unspecified; R11.0 Nausea; I10 Essential (primary) hypertension
CPT/HCPCS: 71045; 80053; 83690; 83735; 84484; 85025; 85378; 86803; 87389; 87522; 93005; 96361; 96374; 96375; 99285; J2405; J7030